=== PATIENT | male | born 1955 | race Caucasian/White ===

== ENCOUNTER → 2024-06-12 06:15 | Day surgery (SDC) | payer MEDICARE, OTHER, SELFPAY | LOC: GI 06:15 | PROVIDERS: ATTENDING PHYSICIAN Internal Medicine | DX: Z12.11 Encounter for screening for malignant neoplasm of colon (principal); D12.0 Benign neoplasm of cecum; D12.2 Benign neoplasm of ascending colon; K57.30 Diverticulosis of large intestine without perforation or abscess without bleeding; Z86.010 Personal history of colon polyps | CPT/HCPCS: 45380; 88305 ==

== ENCOUNTER → 2025-06-11 08:11 | Outpatient (REF) | payer MEDICARE, OTHER, SELFPAY ==
[2025-06-11 09:30] LABS: Hematocrit 42.7 % (39.0-52.0); Hemoglobin 14.7 g/dL (13.0-18.0); Mean Corp Hgb Conc. 34.4 g/dL (33.0-37.0); Mean Corpuscular Volume 94.3 fL (80.0-94.0); Platelet Count 351 10^3/uL (130-400); Red Cell Dist. Width 13.7 % (11.5-14.5)
[2025-06-11 09:53] LABS: Blood Urea Nitrogen 17 mg/dl (9-20); Calcium 9.4 mg/dl (8.4-10.2); Carbon Dioxide 26 mmol/L (22-30); Chloride 108 mmol/L (98-107); Glucose 64 mg/dl (70-99); Potassium 5.0 mmol/L (3.5-5.1); Sodium 141 mmol/L (135-145); eGFR > 60.00
== END ==
LOC: SDSPAT 08:11
PROVIDERS: ATTENDING PHYSICIAN Surgery; FAMILY PHYSICIAN Family Medicine
DX: Z01.818 Encounter for other preprocedural examination (principal)
CPT/HCPCS: 36415; 80048; 85027; 93005

== ENCOUNTER 2025-06-27 06:06 | Day surgery (SDC) | payer MEDICARE, OTHER, SELFPAY ==
[2025-06-11 14:15] VITALS: BMI 27.8
--- NOTE | 2025-06-19 14:38 | PTCARENOTE ---
Abnormal Glucose was 64 on 06/11/25. Shira at Dr. Salgado's office is aware.
--- NOTE | 2025-06-20 16:43 | PTCARENOTE ---
Abnormal Glucose 64, collected 06/11/[address] Matos, no further intervention needed.
[2025-06-27] VITALS (8 sets, daily range): BP systolic 97–135; BP diastolic 63–77; BMI 27.8
[2025-06-27] MEDS: TYLENOL 1000 MG PO (07:13)
[2025-06-27] MEDS: NORMOSOL-R/PLASMALYTE-A 1000 IV (07:18)
== END 2025-06-27 10:54 | disposition home or self-care (01) ==
LOC: SDS 06:06
PROVIDERS: ATTENDING PHYSICIAN Surgery; FAMILY PHYSICIAN Family Medicine
DX: K42.9 Umbilical hernia without obstruction or gangrene (principal)
CPT/HCPCS: 49591